=== PATIENT | male | born 1995 | race Caucasian/White ===

== ENCOUNTER 2017-02-01 16:51 | Emergency (ER) | payer OTHER ==
[~2017-02-01] VITALS: Ht 180.3 cm; Wt 103.6 kg
[~2017-02-01 16:51] MED LIST: ADDERALL5 MG PO; CLEOCIN300 MG PO; FLEXERIL10 MG PO; HYDROCODON-ACE1 EAC8 PO; INTUNIV3 MG PO; KEFLEX500 MG PO; LORATADINE10 M2 PO; MOTRIN600 MG PO; NAPROSYN500 MG PO; NAPROXEN500 MG PO; NOHOMEMEDS; PHENERGAN25 MG PR; SERTRALINE HCL25 MG PO; TRAMADOL HCL50 MG PO; ULTRACET1 TABLET PO; VYVANSE60 MG PO
[2017-02-01] MEDS ORDERED: VYVANSE60 MG PO (17:50)
[2017-02-01] MEDS ORDERED: INTUNIV3 MG PO (17:51)
[2017-02-01] MEDS ORDERED: CLARITIN10 M3 PO (17:51)
[2017-02-01] MEDS ORDERED: LAMICTAL25 MG PO (17:51)
[2017-02-01] MEDS ORDERED: ZOLOFT25 MG PO (17:51)
[2017-02-01] MEDS ORDERED: MOTRIN600 MG PO (18:27)
[2017-02-01 18:38] VITALS: BP 133/67
== END 2017-02-01 18:45 | disposition home or self-care (01) ==
LOC: EME 16:51 → RME 16:51
DX: S93.402A Sprain of unspecified ligament of left ankle, initial encounter (principal); X50.9XXA Other and unspecified overexertion or strenuous movements or postures, initial encounter; Y93.89 Activity, other specified
CPT/HCPCS: 73610; 99281; 99284

== ENCOUNTER 2017-07-13 17:10 | Emergency (ER) | payer OTHER ==
[~2017-07-13] VITALS: Ht 180.3 cm; Wt 104.8 kg
[~2017-07-13 17:10] MED LIST changes: +CLARITIN10 M3 PO; +LAMICTAL25 MG PO; +ZOLOFT25 MG PO
[2017-07-13 17:14] VITALS: BP 119/64
[2017-07-13] MEDS ORDERED: PERCOCET 5/31 TABLET PO (17:36)
[2017-07-13] MEDS ORDERED: VIGAMOX 0.60 DROP/3 RIGHT EYE (17:36)
[2017-07-13] MEDS ORDERED: MOTRIN600 MG PO (17:36)
== END 2017-07-13 18:07 | disposition home or self-care (01) ==
LOC: EME 17:10
PROC: 3E0234Z Introduction of Serum, Toxoid and Vaccine into Muscle, Percutaneous Approach (ICD-10-PCS; principal; 2017-07-13)
DX: H18.821 Corneal disorder due to contact lens, right eye (principal); Z23 Encounter for immunization
CPT/HCPCS: 99281; 99284

== ENCOUNTER 2018-04-18 20:19 | Emergency (ER) | payer BC ==
[~2018-04-18] VITALS: Ht 154.9 cm; Wt 165.9 kg
[~2018-04-18 20:19] MED LIST changes: +PERCOCET 5/31 TABLET PO; +VIGAMOX 0.60 DROP/3 RIGHT EYE
[2018-04-18 22:55] LABS: HEMATOCRIT 42.5 % (38.0-50.0); HEMOGLOBIN 14.8 G/DL (12.5-16.6); MCH 30.6 PG (29.0-34.0); MCHC 34.8 G/DL (30.0-36.0); MCV 87.8 FL (86-99); PLATELET COUNT 302 K/uL (156-360); RBC DIS.WIDTH-CV 12.4 % (11.8-14.6); RBC DIS.WIDTH-SD 39.8 % (39-53); RED BLOOD COUNT 4.84 M/uL (4.00-5.50); WHITE BLOOD COUNT 13.1 K/uL (4.1-10.2)
[2018-04-18 23:04] LABS: D-DIMER ELISA < 150.00 ng/mLDDU (<230)
[2018-04-18 23:05] LABS: CHLORIDE 106 mEq/L (99-109); POTASSIUM 3.8 mEq/L (3.7-5.4); SODIUM 142 mEq/L (136-147)
[2018-04-18 23:07] LABS: GLUCOSE 103 mg/dL (70-99)
[2018-04-18 23:10] LABS: CREATININE 0.8 mg/dL (0.6-1.3); GFR ESTIMATE (CALCULATED) > 59 mL/min/ (58.99-99999)
[2018-04-18 23:11] LABS: UREA NITROGEN (BUN) 15 mg/dL (9-23)
[2018-04-18 23:18] LABS: TROP-I INTERPRETATION NEGATIVE; TROPONIN-I < 0.01 ng/mL (0.0-0.30)
[2018-04-18] MEDS ORDERED: MEDROL DOSEPAK4 MG PO (23:25)
[2018-04-18 23:51] VITALS: BP 147/78
== END 2018-04-18 23:52 | disposition home or self-care (01) ==
LOC: RME 20:19 → EME 20:19 → RME 23:52
PROVIDERS: Physician Assistant Medical
DX: G56.01 Carpal tunnel syndrome, right upper limb (principal); R07.89 Other chest pain; F32.9 Major depressive disorder, single episode, unspecified; F90.9 Attention-deficit hyperactivity disorder, unspecified type
CPT/HCPCS: 71046; 73000; 73130; 80048; 84484; 85027; 85379; 93005; 99281; 99283